=== PATIENT | female | born 1975 | race African-American/Black ===

== ENCOUNTER 2017-07-16 09:41 | Inpatient (IN) | payer MEDICAID ==
[~2017-07-16] VITALS: Ht 172.7 cm; Wt 100.6 kg
[~2017-07-16 09:41] MED LIST: AMOX250C17 PO; CAPT50TA3 PO; CEFD300C37 PO; DOCU-131 PO; DULO20CA45 PO; FENT1PAT74 TD; FENTANYL TD; FLUO40CA9 PO; HYDR25TA6 PO; HYDR2TAB29 PO; HYDR30CR69 TP; LEVO750T26 PO; LIDO120C7 TP; LORA0.5T PO; MAGN71.5 PO; ONDA4TAB10 PO; ONDA4TAB12 PO; OXYC10TA6 PO; OXYC5CAP2 PO; PHEN100T90 PO; POLY17PO5 PO; POTA20TA14 PO; TRAZ100T15 PO
[2017-07-16] MEDS ORDERED: HYDROmorphone 1 MG/ML, 1ML ONE ×3 (10:41→14:19)
[2017-07-16] MEDS ORDERED: LORazepam 2 MG/ML, 1ML ONE ×4 (10:42→14:20)
[2017-07-16] MEDS ORDERED: ONDANSETRON 2MG/ML, 2ML ONE (10:46)
[2017-07-16] MEDS: HYDROmorphone 1 MG/ML, 1ML IVPush PRN ×2 (10:48→11:27)
[2017-07-16] MEDS ORDERED: ONDANSETRON 2MG/ML, 2ML IVPush ONE (11:00)
[2017-07-16] MEDS ORDERED: LORazepam 2 MG/ML, 1ML IVPush ONE ×2 (11:00→11:30)
[2017-07-16] MEDS ORDERED: PIPERACILLIN/TAZO/PMX 3.375GM 50 ML ONE (11:22)
[2017-07-16] MEDS ORDERED: HYDROmorphone 1 MG/ML, 1ML IV ONE (11:30)
[2017-07-16] MEDS ORDERED: SODIUM CHLORIDE FLUSH 10ML SYR IVF ONE (11:30)
[2017-07-16] MEDS ORDERED: PROPOFOL 10 MG/ML, 20ML IVPush ONE (11:30)
[2017-07-16] MEDS ORDERED: PIPERACILLIN/TAZO/PMX 3.375GM 50 ML IVPB ONE (11:30)
[2017-07-16] MEDS ORDERED: PROPOFOL 10 MG/ML, 20ML ONE (11:32)
[2017-07-16 11:36] LABS: HEMOGLOBIN 12.1 g/dL (11.7-16.4); WHITE BLOOD COUNT 9.3 x10^3/uL (3.4-10)
[2017-07-16 11:44] LABS: BLOOD UREA NITROGEN 8 mg/dL (7-18)
[2017-07-16] MEDS: LORazepam 2 MG/ML, 1ML IVPush PRN (14:21)
[2017-07-16] MEDS ORDERED: ONDANSETRON ODT 4 MG PO PRN (14:30)
[2017-07-16] MEDS ORDERED: ENOXAPARIN 40 MG/0.4 ML SQ SCH (14:30)
[2017-07-16] MEDS ORDERED: ONDANSETRON 2MG/ML, 2ML IVPush PRN (14:30)
[2017-07-16] MEDS ORDERED: AMPICILLIN/SULBACTAM 3 GM in SODIUM CHLORIDE 0.9% 100 ML IV SCH (14:30)
[2017-07-16] MEDS ORDERED: NICOTINE 14MG/24 HR PATCH.TD24 ONE (16:14)
[2017-07-16] MEDS ORDERED: ENOXAPARIN 40 MG/0.4 ML ONE (16:15)
[2017-07-16] MEDS: NICOTINE 14MG/24 HR PATCH.TD24 TD SCH (16:17)
[2017-07-16] MEDS: HYDROmorphone 2 MG/ML, 1ML IVPush PRN ×2 (18:08→22:20)
[2017-07-16] MEDS ORDERED: VITA100C8 PO (18:18)
[2017-07-16 19:40] VITALS: BP 122/82
[2017-07-16] MEDS: TRAZODONE 50MG TABLET PO SCH (20:28)
[2017-07-16] MEDS: AMPICILLIN/SULBACTAM 3 GM in SODIUM CHLORIDE 0.9% 100 ML IV SCH (20:28)
[2017-07-16] MEDS: CAPTOPRIL 50 MG TABLET PO SCH (20:28)
[2017-07-17] MEDS: AMPICILLIN/SULBACTAM 3 GM in SODIUM CHLORIDE 0.9% 100 ML IV SCH (03:00)
[2017-07-17 08:00] VITALS: BP 113/71
[2017-07-17 08:19] LABS: BLOOD UREA NITROGEN 9 mg/dL (7-18)
[2017-07-17 08:24] LABS: HEMATOCRIT 35.3 % (34.6-47.8); HEMOGLOBIN 11.8 g/dL (11.7-16.4); WHITE BLOOD COUNT 8.1 x10^3/uL (3.4-10)
[2017-07-17] MEDS: CAPTOPRIL 50 MG TABLET PO SCH ×2 (09:38→21:19)
[2017-07-17] MEDS: HYDROmorphone 2 MG/ML, 1ML IVPush PRN ×3 (10:07→21:19)
[2017-07-17] MEDS: LORazepam 2 MG/ML, 1ML IVPush PRN ×3 (12:16→22:17)
[2017-07-17 13:59] VITALS: BP 120/66
[2017-07-17] MEDS: NICOTINE 14MG/24 HR PATCH.TD24 TD SCH (16:30)
[2017-07-17] MEDS: ENOXAPARIN 40 MG/0.4 ML SQ SCH (16:31)
[2017-07-17] MEDS: OXYcodone IR 5MG TABLET PO PRN (19:27)
[2017-07-17 20:08] VITALS: BP 120/77
[2017-07-17] MEDS: AMOXICILLIN/CLAV 875-125MG TABLET PO SCH (21:19)
[2017-07-17] MEDS: TRAZODONE 50MG TABLET PO SCH (21:19)
[2017-07-18] MEDS: OXYcodone IR 5MG TABLET PO PRN ×6 (01:20→22:23)
[2017-07-18 02:20] VITALS: BP 124/84
[2017-07-18] MEDS: LORazepam 2 MG/ML, 1ML IVPush PRN ×4 (02:45→21:06)
[2017-07-18] MEDS: HYDROmorphone 2 MG/ML, 1ML IVPush PRN ×2 (06:08→10:35)
[2017-07-18] MEDS: AMOXICILLIN/CLAV 875-125MG TABLET PO SCH ×2 (08:23→20:52)
[2017-07-18] MEDS: CAPTOPRIL 50 MG TABLET PO SCH ×2 (08:25→20:52)
[2017-07-18 08:37] VITALS: BP 151/89
[2017-07-18] MEDS ORDERED: FENTANYL 12 MCG PATCH TD SCH (11:30)
[2017-07-18] MEDS: NICOTINE 14MG/24 HR PATCH.TD24 TD SCH (15:19)
[2017-07-18] MEDS: ENOXAPARIN 40 MG/0.4 ML SQ SCH (16:00)
[2017-07-18] MEDS: TRAZODONE 50MG TABLET PO SCH (20:51)
[2017-07-18 20:57] VITALS: BP 151/97
[2017-07-19] MEDS: LORazepam 2 MG/ML, 1ML IVPush PRN ×2 (02:13→10:27)
[2017-07-19 02:38] VITALS: BP 142/87
[2017-07-19] MEDS: OXYcodone IR 5MG TABLET PO PRN ×2 (02:52→09:44)
[2017-07-19 06:27] VITALS: BP 133/86
[2017-07-19] MEDS: CAPTOPRIL 50 MG TABLET PO SCH (09:00)
[2017-07-19] MEDS: AMOXICILLIN/CLAV 875-125MG TABLET PO SCH (09:43)
[2017-07-19] MEDS ORDERED: AMOX1TAB12 PO (10:01)
[2017-07-19] MEDS ORDERED: FENT1PAT74 TD (10:01)
[2017-07-19] MEDS ORDERED: LIDO5CRE19 TP (11:12)
[2017-07-21] MEDS ORDERED: FENTANYL REMOVE PATCH NOTE XX SCH (11:30)
== END 2017-07-19 12:35 | disposition home or self-care (01) | DRG 759 ==
LOC: ED 11:14 → EDIP 11:36 → 4WST 17:42 → 3NW 07-18 05:47 → DCLOUNGE 07-19 12:15
PROVIDERS: ADMIT Hospitalist; ATTEND Hospitalist
PROC: 0T9B70Z Drainage of Bladder with Drainage Device, Via Natural or Artificial Opening (ICD-10-PCS; principal; 2017-07-16)
DX: N76.2 Acute vulvitis (principal); I10 Essential (primary) hypertension; F12.90 Cannabis use, unspecified, uncomplicated; F17.210 Nicotine dependence, cigarettes, uncomplicated; G89.29 Other chronic pain; Z88.6 Allergy status to analgesic agent; Y84.2 Radiological procedure and radiotherapy as the cause of abnormal reaction of the patient, or of later complication, without mention of misadventure at the time of the procedure; Z80.0 Family history of malignant neoplasm of digestive organs; Z80.6 Family history of leukemia; Z85.44 Personal history of malignant neoplasm of other female genital organs; Z92.21 Personal history of antineoplastic chemotherapy; Z92.3 Personal history of irradiation
CPT/HCPCS: 36415; 80048; 81001; 82040; 83605; 85025; 87040; 87070; 87077; 87186; 87205; 96365; 96372; 96375; 96376; 99152; 99153; J0295; J1170; J1650; J2405; J2543; Q0162; J2060

== ENCOUNTER 2017-10-01 15:25 | Emergency (ER) | payer MEDICARE, MEDICAID ==
[~2017-10-01] VITALS: Ht 175.3 cm; Wt 96.8 kg
[~2017-10-01 15:25] MED LIST changes: +AMOX1TAB12 PO; +LIDO5CRE19 TP; +VITA100C8 PO
[2017-10-01] MEDS ORDERED: SODIUM CHLORIDE FLUSH 10ML SYR IVF ONE (19:30)
[2017-10-01] MEDS ORDERED: SODIUM CHLORIDE 0.9% 1,000ML IVBOLUS ONE (19:30)
[2017-10-01] MEDS ORDERED: ONDANSETRON 2MG/ML, 2ML IVPush ONE (19:30)
[2017-10-01] MEDS ORDERED: MORPHINE SULFATE 4 MG/ML, 1ML IVPush PRN (19:30)
[2017-10-01 19:43] LABS: BLOOD UREA NITROGEN 11 mg/dL (7-18)
[2017-10-01] MEDS ORDERED: morphine SULFATE 10 MG/ML, 1ML ONE (19:50)
[2017-10-01] MEDS ORDERED: ONDANSETRON 2MG/ML, 2ML ONE (19:50)
[2017-10-01 20:12] LABS: HEMATOCRIT 41.9 % (34.6-47.8); HEMOGLOBIN 13.9 g/dL (11.7-16.4); WHITE BLOOD COUNT 6.3 x10^3/uL (3.4-10)
[2017-10-01 20:14] LABS: DIFF TOTAL CELLS COUNTED 100 CELL DIFF
[2017-10-01] MEDS ORDERED: OMNIPAQUE 350 MG/ML, 100ML BOTTLE ONE (20:35)
[2017-10-01 20:36] LABS: VERIFY COUNTS? YES
[2017-10-01 20:54] LABS: PATH.CAST-FLAG NOT PRESENT; SPERM-FLAG NOT PRESENT; SRC-FLAG NOT PRESENT; XTAL-FLAG NOT PRESENT; YLC-FLAG NOT PRESENT
[2017-10-01 21:28] VITALS: BP 172/97
== END 2017-10-01 21:31 | disposition home or self-care (01) ==
LOC: ED 21:26
DX: N30.00 Acute cystitis without hematuria (principal); B37.3 Candidiasis of vulva and vagina; R10.2 Pelvic and perineal pain; G89.29 Other chronic pain; Z90.49 Acquired absence of other specified parts of digestive tract; I10 Essential (primary) hypertension
CPT/HCPCS: 36415; 72193; 80048; 81001; 82040; 84703; 85025; 87077; 87086; 96361; 96374; 96375; 99285; J2405; J7030; Q9967; 87186